=== PATIENT | male | born 1935 | race Caucasian/White ===

== ENCOUNTER 2019-06-17 14:09 | Observation (INO) | payer MEDICARE ==
[~2019-06-17 14:09] MED LIST: Iopamidol 370 76% 100 ML VIAL ONE
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
--- NOTE | 2019-06-17 14:49 | CT ---
CT cervical spine without contrast: 06/17/2019 COMPARISON: None available HISTORY: Injury, trauma, pain TECHNIQUE: Axial CT imaging at 2.5 mm intervals through the cervical spine without contrast. Coronal and sagittal reformatted imaging obtained. FINDINGS: Imaged paranasal sinuses and mastoid air cells well-aerated. Visualized lung apices unremarkable. There is moderate degenerative change at the atlantoaxial interspace. The occipital condyles, dens, a nd C1-2 articulation appears within normal limits. There is disc space narrowing with degenerative endplate change and posterior osteophyte formation at C3-4, C4-5, C5-6, and C6-7. No significant anterolisthesis or retrolisthesis. No prevertebral soft tissue swelling. There is multilevel cervical spine facet and uncovertebral osteophyte formation, rig ht greater than left. No displaced fracture or evidence of dislocation. IMPRESSION: Multilevel cervical spine degenerative change. No acute fracture or dislocation. Call will valladares to Dr. López 2:45 PM 06/17/[address] and cervical spine CT results.
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
[2019-06-17 15:04] LABS: #Basophils 0.1 thou/uL (0.0-0.2); #Eosinphils 0.2 thou/uL (0.0-0.7); #Lymphocytes 1.5 thou/uL (1.20-3.40); #Monocytes 0.7 thou/uL (0.11-0.59); #Neutrophils 5.6 thou/uL (1.40-6.50); %Basophils 1.3 % (0.0-1.0); %Eosinophils 2.9 % (0.0-10.0); %Lymphocytes 18.4 % (21.0-51.0); %Monocytes 8.4 % (0.0-10.0); Mean Corpuscular HGB CONC 34.1 g/dL (32.0-36.0); Mean Corpuscular Hemoglobin 33.2 pg (27.0-31.0); Mean Corpuscular Volume 97.4 fL (78.0-98.0); Mean Platelet Volume 7.5 fL (7.4-10.4); Platelet Count 203 thou/uL (130-400); RBC Distribution Width 11.3 % (11.5-14.5); Red Blood Cell (RBC) Count 4.51 mill/uL (4.70-6.10); White Blood Cell (WBC) Count 8.2 thou/uL (4.8-10.8)
[2019-06-17 15:11] LABS: INR-International Normal Ratio 1.1; PTT 36.8 SEC (22.9-36.1)
[2019-06-17 15:29] LABS: ALT (SGPT) 15 U/L (8-55); AST (SGOT) 18 U/L (5-34); Albumin 3.7 g/dL (3.4-4.8); Alcohol Less than 10 mg/dL (Less than 10); Alkaline Phosphatase 98 U/L (40-110); Anion Gap 6 mmol/L (10-20); BUN (Urea Nitrogen) 14 mg/dL (8.4-25.7); Bilirubin, Total 0.8 mg/dL (0.2-1.2); Calc. Creatinine Clearance 0 mL/min (70-130); Calcium 8.9 mg/dL (7.8-10.44); Carbon Dioxide 30 mmol/L (23-31); Chloride 103 mmol/L (98-107); Estimated GFR-MDRD 57; Globulin 2.4 g/dL (2.4-3.5); Glucose 106 mg/dL (83-110); Lipase 19 U/L (8-78); Protein, Total 6.1 g/dL (5.8-8.1); Sodium 135 mmol/L (136-145)
[2019-06-17] MEDS ORDERED: Dextrose 50% Abboject 50 ML SYRINGE SLOW IVP PRN (20:08)
[2019-06-17] MEDS ORDERED: Dextrose 5% in Water 1,000 ML IV PRN (20:08)
[2019-06-17] MEDS ORDERED: Ondansetron ODT 4 MG TAB PO PRN (20:08)
[2019-06-17] MEDS ORDERED: hydrALAZINE 20 MG/ML VIAL SLOW IVP PRN (20:08)
[2019-06-17] MEDS ORDERED: traMADol HCl 50 MG TAB PO PRN ×2 (20:13)
[2019-06-17] MEDS ORDERED: Sodium Chloride 0.9% 1,000 ML IV SCH (20:15)
[2019-06-17 23:08] VITALS: BMI 27.6
[2019-06-17] MEDS: Acetaminophen 500 MG TAB PO SCH (23:44)
[2019-06-17] MEDS: Senokot S 8.6-50 MG TAB PO SCH (23:44)
[2019-06-18 00:04] LABS: Phosphorus 3.1 mg/dL (2.3-4.7)
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
[2019-06-18] MEDS: Acetaminophen 500 MG TAB PO SCH ×5 (06:01→23:58)
[2019-06-18] MEDS ORDERED: Cyclobenzaprine 10 MG TAB PO PRN (07:47)
[2019-06-18] MEDS ORDERED: Methocarbamol 500 MG TAB PO PRN (07:48)
[2019-06-18] MEDS ORDERED: Nitroglycerin 0.4 MG TAB (25 Tab Bottle) SL PRN (07:48)
[2019-06-18] MEDS: Senokot S 8.6-50 MG TAB PO SCH ×2 (08:43→20:04)
[2019-06-18] MEDS: Aspirin 81 mg Enteric Coated Tablet PO SCH (08:43)
[2019-06-18] MEDS: Gabapentin 100 MG CAP PO SCH ×3 (08:43→20:04)
[2019-06-18] MEDS: Rosuvastatin 20 MG TAB PO SCH (08:43)
[2019-06-18] MEDS ORDERED: FLU VACC TS2019-20(65YR UP)/PF 180 MCG/0.5 ML SYRINGE IM ONE (09:00)
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
[2019-06-18] MEDS: Ibuprofen 600 MG TAB PO SCH ×2 (14:49→20:04)
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
[2019-06-19] MEDS: Ibuprofen 600 MG TAB PO SCH ×3 (05:40→21:03)
[2019-06-19] MEDS: Acetaminophen 500 MG TAB PO SCH ×4 (05:40→23:32)
[2019-06-19] MEDS: Aspirin 81 mg Enteric Coated Tablet PO SCH (08:26)
[2019-06-19] MEDS: Gabapentin 100 MG CAP PO SCH ×3 (08:26→21:01)
[2019-06-19] MEDS: Senokot S 8.6-50 MG TAB PO SCH ×2 (08:26→21:01)
[2019-06-19] MEDS: Rosuvastatin 20 MG TAB PO SCH (08:27)
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
[2019-06-20] MEDS: Ibuprofen 600 MG TAB PO SCH ×3 (05:42→22:42)
[2019-06-20] MEDS: Acetaminophen 500 MG TAB PO SCH ×4 (05:42→23:38)
[2019-06-20] MEDS: Senokot S 8.6-50 MG TAB PO SCH ×2 (08:21→20:31)
[2019-06-20] MEDS: Aspirin 81 mg Enteric Coated Tablet PO SCH (08:21)
[2019-06-20] MEDS: Gabapentin 100 MG CAP PO SCH ×3 (08:21→20:30)
[2019-06-20] MEDS: Rosuvastatin 20 MG TAB PO SCH (08:22)
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
[2019-06-21] MEDS: Ibuprofen 600 MG TAB PO SCH (05:48)
[2019-06-21] MEDS: Acetaminophen 500 MG TAB PO SCH (05:48)
[2019-06-21 07:34] VITALS: BP 128/85; TEMP 97.7
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
--- NOTE | 2019-06-25 21:55 | EKG ---
Test Reason : Blood Pressure : / mmHG Vent. Rate : 089 BPM Atrial Rate : 089 BPM P-R Int : 130 ms QRS Dur : 072 ms QT Int : 384 ms P-R-T Axes : 069 061 059 degrees QTc Int : 467 ms Normal sinus rhythm Normal ECG Confirmed by LARISSA BLISS DO ([id number]), desk editor BELLE SILVER ([id number] on 06/25/2019 9:54:39 PM Referred By: Confirmed By:LARISSA BLISS DO
== END 2019-06-21 08:45 | disposition home or self-care (01) ==
LOC: EDBD 14:09 → ERS 14:09 → SJJU 22:42 → INTOOBSV 22:42
PROVIDERS: ADMIT Emergency Medicine; ATTEND Emergency Medicine
DX: S22.080A Wedge compression fracture of T11-T12 vertebra, initial encounter for closed fracture (principal); G89.11 Acute pain due to trauma; M47.817 Spondylosis without myelopathy or radiculopathy, lumbosacral region; M48.07 Spinal stenosis, lumbosacral region; M51.37 Other intervertebral disc degeneration, lumbosacral region; I71.4 Abdominal aortic aneurysm, without rupture; I25.10 Atherosclerotic heart disease of native coronary artery without angina pectoris; E78.5 Hyperlipidemia, unspecified; Z79.82 Long term (current) use of aspirin; Z79.899 Other long term (current) drug therapy; Z86.12 Personal history of poliomyelitis; Z88.5 Allergy status to narcotic agent; Z95.5 Presence of coronary angioplasty implant and graft; V54.9XXA Unspecified occupant of pick-up truck or van injured in collision with heavy transport vehicle or bus in traffic accident, initial encounter
CPT/HCPCS: 70450; 71260; 72125; 74177; 80053; 80307; 83605; 83690; 83735; 84100; 85025; 85610; 85730; 86850; 86900; 86901; 90662; 93005; 94760; 96360; 96361; 97116 ×2; 97139 ×7; 97530 ×2; 97535; 99284; G0008; G0378 ×6; 36415; 90471; G0390; Q9967